=== PATIENT | female | born 1980 | race Caucasian/White ===

== ENCOUNTER 2020-05-30 16:19 | Inpatient (IN) | payer OTHER ==
[~2020-05-30] VITALS: Ht 167.6 cm; Wt 103.4 kg
[2020-05-31] MEDS ORDERED: MEGESTROL ACETA40 MG (09:00)
== END 2020-06-03 11:12 | disposition home or self-care (01) | DRG 745 ==
LOC: OB/GYN 16:19 → SURG-SUITE 16:19
PROVIDERS: ADMIT Obstetrics & Gynecology; ATTEND Obstetrics & Gynecology
PROC: 30233N1 Transfusion of Nonautologous Red Blood Cells into Peripheral Vein, Percutaneous Approach (ICD-10-PCS; 2020-05-31)
PROC: 0UDB8ZX Extraction of Endometrium, Via Natural or Artificial Opening Endoscopic, Diagnostic (ICD-10-PCS; principal; 2020-06-01 18:00)
DX: N93.8 Other specified abnormal uterine and vaginal bleeding (principal); D50.0 Iron deficiency anemia secondary to blood loss (chronic); Z20.828 Contact with and (suspected) exposure to other viral communicable diseases

== ENCOUNTER 2020-07-13 08:30 | Inpatient (IN) | payer OTHER ==
[~2020-07-13] VITALS: Ht 167.6 cm; Wt 103.4 kg
[~2020-07-13 08:30] MED LIST: MEGESTROL ACETA40 MG
[2020-07-13] MEDS ORDERED: MAXALT MLT10 MG PO (09:59)
== END 2020-07-23 09:09 | disposition home or self-care (01) | DRG 743 ==
LOC: OB/GYN 07-20 08:30 → O/R 07-20 10:53 → OB/GYN 07-20 10:53
PROVIDERS: ADMIT Obstetrics & Gynecology; ATTEND Obstetrics & Gynecology
PROC: 0UB70ZZ Excision of Bilateral Fallopian Tubes, Open Approach (ICD-10-PCS; 2020-07-20)
PROC: 0UT90ZZ Resection of Uterus, Open Approach (ICD-10-PCS; principal; 2020-07-20 09:00)
DX: D25.1 Intramural leiomyoma of uterus (principal); D25.2 Subserosal leiomyoma of uterus; N72 Inflammatory disease of cervix uteri; D64.9 Anemia, unspecified